=== PATIENT | female | born 1995 ===

== ENCOUNTER 2021-03-16 10:54 | Emergency (ER) | payer SELFPAY ==
[~2021-03-16] VITALS: Ht 162.6 cm; Wt 114.4 kg
--- NOTE | 2021-03-16 11:24 | NUR ---
SORE THROAT, SOB SINCE 0500 AM. WENDY CHRIS TO BEDSIDE FOR EVALUAITON AND STREP TEST. PT POSTIONED TO COMFORT. ATTACHED TO MONITORS. VSS. WELLER.
[2021-03-16] MEDS ORDERED: KETOROLAC 30 MG/1 ML IM ONE (11:30)
[2021-03-16] MEDS ORDERED: KETOROLAC 30 MG/1 ML ONE (11:34)
[2021-03-16 12:24] VITALS: BP 130/85
--- NOTE | 2021-03-16 12:25 | NUR ---
Patient given discharge instructions and they have confirmed that they understand the instructions. Patient ambulatory with steady gait.
== END 2021-03-16 12:27 | disposition home or self-care (01) ==
LOC: ED 12:20
DX: J02.8 Acute pharyngitis due to other specified organisms (principal); B97.89 Other viral agents as the cause of diseases classified elsewhere; R94.31 Abnormal electrocardiogram [ECG] [EKG]
CPT/HCPCS: 87081; 87880; 93005; 96372; 99284; J1885